=== PATIENT | female | born 1990 | race Two or more races ===

== ENCOUNTER 2022-02-26 04:18 | Day surgery (SDC) | payer OTHER ==
[2022-02-25 12:55] VITALS: BMI 28.3
[~2022-02-26 04:18] MED LIST: LIDOCAINE HCL 1%, 10 MG/ML (20ML VIAL) NR ONE; ceFAZolin SODIUM 1 GM VIAL IVPB ONE
[2022-02-26] MEDS ORDERED: MIDAZOLAM HCL 2 MG/2 ML SINGLE DOSE VIAL ONE (13:05)
[2022-02-26] MEDS ORDERED: PROPOFOL 20 ML ONE (13:05)
[2022-02-26] MEDS ORDERED: DEXAMETHASONE SOD PHOSPHATE 4 MG/1 ML VIAL ONE (13:05)
[2022-02-26] MEDS ORDERED: ceFAZolin SODIUM 1 GM VIAL IVPB ONE (13:40)
[2022-02-26] MEDS ORDERED: ceFAZolin SODIUM 1 GM VIAL ONE (13:42)
[2022-02-26] MEDS ORDERED: LIDOCAINE HCL 1%, 10 MG/ML (20ML VIAL) NR ONE (13:51)
[2022-02-26] MEDS ORDERED: oxyCODONE HCL 5 MG TABLET PO PRN (15:02)
[2022-02-26] MEDS ORDERED: ONDANSETRON 4 MG/2 ML VIAL IVPUSH PRN (15:02)
[2022-02-26] MEDS ORDERED: LACTATED RINGERS SOLUTION 1,000 ML IV SCH (15:15)
[2022-02-26 17:24] VITALS: BP 108/72; PULSE 73; TEMP 98.2
== END 2022-02-26 16:42 | disposition home or self-care (01) ==
LOC: JASU-SURG 04:18
PROVIDERS: ATTEND Surgery
PROC: 0HBT0ZX Excision of Right Breast, Open Approach, Diagnostic (ICD-10-PCS; principal; 2022-02-26 12:00)
DX: D24.1 Benign neoplasm of right breast (principal)
CPT/HCPCS: 81025; 88307-TC; 88341-TC; 88342-TC; 94760